=== PATIENT | female | born 1975 | race Caucasian/White ===

== ENCOUNTER 2023-08-07 09:27 | Day surgery (SDC) | payer OTHER ==
[~2023-08-07] VITALS: Ht 165.1 cm; Wt 76.2 kg
[2023-08-07] MEDS ORDERED: MIDAZOLAM 5 MG/5 ML VIAL ONE (10:51)
[2023-08-07] MEDS ORDERED: LIDOCAINE 2% 100 MG/5 ML UJET TP ONE (10:51)
[2023-08-07] MEDS ORDERED: fentaNYL citrate 0.05 MG/ML VIAL ONE ×2 (10:51)
[2023-08-08] MEDS ORDERED: fentaNYL citrate 0.05 MG/ML VIAL IVP ONE (13:10)
[2023-08-08] MEDS ORDERED: LIDOCAINE 2% 100 MG/5 ML UJET TP ONE (13:10)
[2023-08-08] MEDS ORDERED: MIDAZOLAM 2 MG/2 ML VIAL IVP ONE (13:10)
== END 2023-08-07 12:20 | disposition home or self-care (01) ==
LOC: MMU 09:27 → MDS 09:27
PROVIDERS: ATTEND Internal Medicine Gastroenterology
DX: Z12.11 Encounter for screening for malignant neoplasm of colon (principal); J45.909 Unspecified asthma, uncomplicated; M79.7 Fibromyalgia; M32.9 Systemic lupus erythematosus, unspecified; M06.9 Rheumatoid arthritis, unspecified; F17.210 Nicotine dependence, cigarettes, uncomplicated; Z79.899 Other long term (current) drug therapy; Z98.890 Other specified postprocedural states
CPT/HCPCS: 45378; J2250; J3010